=== PATIENT | male | born 1965 | race African-American/Black ===

== ENCOUNTER 2019-04-07 15:55 | Inpatient (IN) ==
[2019-04-07] MEDS ORDERED: NS 1,000 ML IV ONE ×2 (16:20→20:24)
[2019-04-07 16:43] LABS: BASO# 0.03 X1000 (0.0-0.2); BASO% 0.5 % (0.0-0.8); EOS# 0.04 X1000 (0.0-0.7); EOS% 0.6 % (0.0-10.0); HEMATOCRIT 43.1 % (42.0-52.0); HEMOGLOBIN 15.8 g/dL (14.0-18.0); IMM GRAN# 0.01 X1000 (0.0-0.04); IMM GRAN% 0.2 % (0.0-0.5); LYMPH# 1.67 X1000 (1.2-3.4); LYMPH% 25.8 % (20.5-51.1); MCH 29.3 PG (27-31); MCHC 36.7 g/dL (33-37); MCV 79.8 FL (81-99); MONO# 0.75 X1000 (0.11-0.59); MONO% 11.6 % (1.7-9.3); MPV 10.8 FL (7.4-10.4); NEUT# 3.98 X1000 (1.4-6.5); NEUT% 61.3 % (42.2-75.2); PLT 227 X1000 (130-400); RDW 13.2 % (11.5-14.5); WBC 6.48 X1000 (4.8-10.8)
--- NOTE | 2019-04-07 16:47 | PROVIDER DOCUMENTATION ---
HPI-General Adult - General Chief Complaint: Heat Related Stated Complaint: DIABETIC / THIRST / WEAK Time Seen by Provider: 04/07/19 16:19 Source: patient Allergies/Adverse Reactions: Patient Allergies Allergy/AdvReac Type Severity Reaction Status Date / Time No Known Allergies Allergy Verified 04/07/19 16:45 Home Medications: Home Medication List Medication Instructions Recorded Confirmed Last Taken Type Unobtainable [Home Meds 04/07/19 04/07/19 Unknown History Unobtainable] - History of Present Illness -Gen Adult Nature of Presenting Problems: 53 YOM PRESENTS WITH C/O GENERALIZED WEAKNESS, THIRST AND WORKING OUT IN THE HEAT ALL WEEK. HE DENIES N/V/D, CP, SOB. Location of Pain/Injury: reports: none Pain Radiation: reports: no radiation Quality of Pain: reports: none Severity: reports: moderate Onset/Duration: reports: 1 week ago Timing: reports: still present Context/Activities at Onset: reports: none Modifying Factors: improves with: nothing Associated Symptoms: reports: weakness Similar Symptoms Previously?: Yes Recently seen or treated by another doctor?: No - Diabetes Related Context Context: reports: high blood sugar Review of Systems - Adult - REVIEW OF SYSTEMS - ADULT Constitutional: reports: no symptoms reported. denies: see HPI, chills, fever, fatique, night sweats, weight gain, weight loss, other Eyes: reports: no symptoms reported. denies: see HPI, discharge, dry eyes, decreased vision, blurred vision, double vision, eye pain, redness, other Ears, Nose, Mouth & Throat: reports: no symptoms reported. denies: see HPI, ear discharge, ear pain, hearing loss, tinnitus, epistaxis, sinus problem, nose pain, loose teeth, mouth/dental pain, mouth swelling, hoarseness, throat pain, throat swelling, other Cardiovascular: reports: no symptoms reported. denies: see HPI, chest pain, edema, heart murmur, irregular heart rate, orthopnea, palpitations, poor circulation, PND, syncope, other Respiratory: reports: no symptoms reported. denies: see HPI, chronic cough, cough, dyspnea on exertion, excessive sputum production, hemoptysis, pleurisy, shortness of breath, wheezing, other Gastrointestinal: reports: no symptoms reported. denies: see HPI, abdominal pain, hematemesis, constipation, diarrhea, difficulty swallowing, frequent heartburn, nausea, poor appetite, rectal bleeding, vomiting, other Genitourinary: reports: no symptoms reported. denies: see HPI, dysuria, discharge, frequency, flank pain, frequent UTI's, hematuria, hesitency, incontinence, urinary retention, urgency, other Musculoskeletal: reports: see HPI, muscle weakness (GENRALIZED). denies: no symptoms reported, bone pain, back pain, frequent leg cramps, joint pain, joint swelling, muscle aches, neck pain, other Integumentary: reports: no symptoms reported. denies: see HPI, hives, hair loss, itching, mole changes, nail changes, rash, skin sores/ulcer, skin thickening, other Neurological: reports: no symptoms reported. denies: see HPI, ataxia, dizziness/vertigo, headache/migraines, loss of balance, numbness, paresthesia, seizure, slurred speech, syncope, tremors, other Psychiatric: reports: no symptoms reported. denies: see HPI, anxiety, anti-depressant use, alcohol/drug dependence, depression, emotional problems, insomnia, panic attacks, suicidal thoughts, other Endocrine: reports: see HPI, increased thirst. denies: no symptoms reported, change in skin pigment, excessive sweating, goiter, cold intolerance, heat intolerance, increased hunger, polyuria, other Hematologic/Lymphatic: reports: no symptoms reported. denies: see HPI, blood clots, easy bruising, low blood count, lymphedema, prolonged bleeding, swollen lymph nodes, transfusions, other Allergic/Immunologic: reports: no symptoms reported. denies: see HPI, allergic reactions, allergic rhinitis, asthma, eczema, food allergy, frequent infections, hay fever, hives, positive PPD, urticaria, other Past History - Adult - PAST MEDICAL HISTORY-ADULT Review of Records: reports: Nursing Assessment Review, Social history reviewed & non-contributory. Major Childhood Illnesses: reports: denies history Cardiovascular: reports: denies history Respiratory: reports: denies history Gastrointestinal: reports: denies history Obstetrical/Gynecological: reports: denies history Genitourinary: reports: denies history Musculoskeletal: reports: denies history Neurological: reports: denies history Endocrine/Immune: reports: Diabetes Other Conditions: reports: denies history - PRIOR SURGERIES/PROCEDURES Surgical/Procedure History: reports: appendectomy, hernia repair - IMMUNIZATION STATUS Childhood Immunizations: See Nurse Assessment Flu Vaccine: See Nurse Assessment - FAMILY HISTORY Family History: reviewed, not pertinent Physical Exam-General - PHYSICAL EXAM-ADULT Initial Vital Signs Reviewed: Yes - CONSTITUTIONAL General Appearance: appears well, alert, no apparent distress - EYES Eyes: PERRL/EOMI, pink conjunctivae - HEAD, EARS, NOSE, MOUTH & THROAT HENMT: normocephalic/atraumatic, moist mucous membranes, normal ENT inspection - NECK Neck: non-tender, full range of motion, supple - RESPIRATORY Respiratory: chest non-tender, lungs clear, normal breath sounds, no pleuratic chest pain, no respiratory distress, no accessory muscle use - CARDIOVASCULAR Cardiovascular: normal peripheral pulses, regular rate, rhythm, no edema, no gallop, no JVD, no murmur - GASTROINTESTINAL (ABDOMEN) Abdominal Exam: normal bowel sounds, non tender, soft - LYMPHATIC Lymphatic: no adenopathy - MUSCULOSKELETAL Back Exam: normal inspection, no CVA tenderness, no vertebral tenderness Extremity: normal range of motion, non-tender, normal gait - SKIN Integumentary: normal color, normal turgor, warm/dry - NEUROLOGIC Neurologic: grossly normal - PSYCHIATRIC Psych/Mental Status: normal mood/affect, oriented x 3 Progress - PLAN OF CARE/RESULTS Progress/Plan/Lab Results: Vital Signs - 8 hr 04/07/19 16:11 Temperature 97.8 F Pulse Rate 84 Respiratory Rate 18 Blood Pressure 138/75 O2 Sat by Pulse Oximetry 99 Laboratory Results - last 24 hr 04/07/19 16:33 WBC 6.48 RBC 5.40 Hgb 15.8 Hct 43.1 MCV 79.8 L MCH 29.3 MCHC 36.7 RDW Std Deviation 13.2 Plt Count 227 MPV 10.8 H Immature Gran % (Auto) 0.2 Neut % (Auto) 61.3 Lymph % (Auto) 25.8 [place] % (Auto) 11.6 H Eos % (Auto) 0.6 Baso % (Auto) 0.5 Immature Gran # (Auto) 0.01 Neut # (Auto) 3.98 Lymph # (Auto) 1.67 [place] # (Auto) 0.75 H Eos # (Auto) 0.04 Baso # (Auto) 0.03 Orders Category Date Time Status Finger Stick Blood Sugar (ED) DIRECTED Care 04/07/19 16:16 Active Saline Loc NOW Care 04/07/19 16:34 Active CBC WITH DIFF [HEME] Stat Lab 04/07/19 16:33 Completed CMP [COMPREHENSIVE METABOLIC PANEL] [CHEM] Stat Lab 04/07/19 16:33 Received Ketone [ACETONE SERUM] [CHEM] Stat Lab 04/07/19 16:33 Received MAGNESIUM [CHEM] Stat Lab 04/07/19 16:[address] W/POSS RFLX CULT [URINALYSIS] Stat Lab 04/07/19 16:[address] Uncol[address]OUS BLOOD GAS [address] [RESP] Routine Lab 04/07/19 16:29 Ordered 0.9% Sodium Chloride Inj [Ns] 1,000 ml Med 04/07/19 16:20 Active IV 999 mls/hr Result Diagrams: 04/07/19 16:33 04/07/19 16:33 - REASSESSMENT Reassessment #1 Time Reassessed: 17:43 (at bedside to assess pt and inform of admission. Pt in room eating BBQ sandwich and chips. Instructed pt that he needs to remain NPO at present. Pt verbalized understanding.) - CONSULTS/PCP/HOSPITALIST Notification #1 *Consult/PCP/Hospitalist*: Dr Lemus Time Discussed: 17:35 Consult Disposition: Will see in ED, Admit - CHANGE OF SHIFT REPORT (ED Provider) 1 Report Given and Care Transferred to:: CHRISTY PEREZ Time of Transfer: 17:00 Items Pending: Labs Departure - Departure Date of Disposition Decision: 04/07/19 Time of Disposition Decision: 17:44 DIAGNOSIS: DKA (diabetic ketoacidoses) Qualifiers: Diabetes mellitus type: other specified (including JAYNE) Diabetes mellitus complication detail: without coma Qualified Code(s): E13.10 - Other specified diabetes mellitus with ketoacidosis without coma Disposition: ADMITTED INPATIENT 09 Certified Medical Emergency: Emergent Condition: Fair Referrals and Follow-Ups: None,PCP [Primary Care Provider] - - Critical Care Note This patient required my direct & personal management of CC.: Yes Total Time (mins): 40 Critical Care Statement: This patient required my direct personal management to treat or rule out processes, the absence of which, could potentiallly result in sudden, clinically significant life or limb threatening deterioration. Attestation - Physician/ GARRET Attestation Patient care was provided by Advanced Practice Provider:: Yes Advanced Practice Provider:: Charles Perez Advanced Practice Provider documentation review:: The Mid-level provider documentation, treatment plan and medical decision making was reviewed by the physician who agrees with all treatment and medical decision making by the MLP. The physician spent face to face time with patient:: No Advanced Practice Provider documentation review:: Supervising physician onsite and consulted in the evaluation and care of this patient. The physician did not have a face to face encounter with the patient.
[2019-04-07 16:54] LABS: BE -15.5 mmoll (-2.0-2.0); BLOOD TYPE VENOUS; HCO3-(ACT) 10.9 mmoll (22-27); PCO2(98.6) 36 mmHg (40-60); PO2(98.6) 22 mmHg (30-55); SAMPLE BLOOD
[2019-04-07 16:57] LABS: pH(98.6) 7.15 (7.32-7.43)
[2019-04-07 17:11] LABS: AGAP 30; ALBUMIN 4.5 g/dL (3.5-5.0); ALKALINE PHOSPHATASE 134 U/L (32-122); BUN 9 mg/dL (8-22); CALCIUM 9.1 mg/dL (8.8-10.2); CHLORIDE 94 mmol/L (98-107); COSMO 272; CREATININE 1.1 mg/dL (0.7-1.2); ESTIMATED GFR > 60; GLUCOSE 284 mg/dL (70-104); GOT < 5 U/L (10-34); GPT < 5 U/L (10-44); MAGNESIUM 1.8 mg/dL (1.5-2.7); POTASSIUM 3.8 mmol/L (3.5-5.1); SODIUM 131 mmol/L (136-145); TCO2 7 mmol/L (25-35); TOTAL PROTEIN 7.9 g/dL (6.3-8.3)
[2019-04-07 17:28] LABS: BILIRUBIN URINE NEGATIVE (NEGATIVE); BLOOD URINE 1+ (NEGATIVE); CLARITY CLEAR (CLEAR); COLOR YELLOW; KETONE URINE 3+(Large) mg/dL (NEGATIVE); LEUKOCYTES URINE NEGATIVE (NEGATIVE); NITRITE URINE NEGATIVE (NEGATIVE); PROTEIN URINE 2+(100 mg/dL) mg/dL (NEGATIVE); UROBILINOGEN URINE NORMAL
[2019-04-07] MEDS ORDERED: HUMULIN R (PARKWAY) 100 UNITS in NS 100 ML IV SCH (17:30)
[2019-04-07 17:38] LABS: URINE BACTERIA NEGATIVE /HFP; URINE EPITHELIAL CELLS >10 /HPF (<10); URINE RBC <10 /HPF (<10); URINE SOURCE CLEAN CATCH; URINE WBC <10 /HPF (<10)
[2019-04-07] MEDS ORDERED: MAGNESIUM SULFATE 2 GM/S.W.I. 2 GM/50 ML IVPB IV PRN (17:49)
[2019-04-07] MEDS ORDERED: ZOFRAN IV PRN (17:49)
[2019-04-07] MEDS ORDERED: TYLENOL PO PRN (17:49)
[2019-04-07] MEDS ORDERED: SODIUM PHOSPHATE 30 MMOL in D5W 250 ML IV PRN (17:49)
[2019-04-07] MEDS ORDERED: D50W SYRINGE IV PRN (17:49)
[2019-04-07] MEDS ORDERED: HUMULIN R IV ONE (17:49)
[2019-04-07] MEDS ORDERED: POTASSIUM CHLORIDE 20 MEQ/SWI 20 MEQ/100 ML IVPB IV PRN (17:49)
[2019-04-07] MEDS ORDERED: HUMULIN R 100 UNIT in NS 100 ML IV SCH (18:00)
[2019-04-07 18:16] LABS: AMYLASE 89 U/L (20-200); CK PROFILE 66 U/L (24-204)
[2019-04-07 18:17] LABS: HEMOGLOBIN A1C 14.5 % (4.8-6.0)
[2019-04-07 18:48] LABS: MCH 29.4 PG (27-31); MCHC 36.6 g/dL (33-37); MCV 80.4 FL (81-99); RBC 5.1 XMIL (4.7-6.1); RDW 13.3 % (11.5-14.5); WBC 5.62 X1000 (4.8-10.8)
[2019-04-07] MEDS: NS 1,000 ML IV SCH (18:55)
[2019-04-07 19:01] LABS: ALBUMIN 4.3 g/dL (3.5-5.0); CALCIUM 8.6 mg/dL (8.8-10.2); CALCIUM 8.7 mg/dL (8.8-10.2); CREATININE 1.4 mg/dL (0.7-1.2); MAGNESIUM 1.7 mg/dL (1.5-2.7); PHOSPHORUS 2.5 mg/dL (2.7-4.5); POTASSIUM 4.1 mmol/L (3.5-5.1); TOTAL BILIRUBIN 0.4 mg/dL (0.20-1.00); TOTAL PROTEIN 7.2 g/dL (6.3-8.3)
[2019-04-07] MEDS: POTASSIUM CHLORIDE 20% LIQUID PO PRN ×2 (20:49→22:30)
[2019-04-07] MEDS: D5 1/2 NS 1,000 ML IV SCH (22:25)
[2019-04-07 22:42] LABS: CALCIUM 8.4 mg/dL (8.8-10.2); CREATININE 1.4 mg/dL (0.7-1.2); MAGNESIUM 2.2 mg/dL (1.5-2.7); PHOSPHORUS 1.4 mg/dL (2.7-4.5); POTASSIUM 4.1 mmol/L (3.5-5.1)
--- NOTE | 2019-04-08 00:13 | HISTORY AND PHYSICAL ---
CHIEF COMPLAINT: Abdominal pain. HISTORY OF PRESENT ILLNESS: The patient is a 53-year-old male who presented to the hospital with generalized weakness, increased thirst. Notes he has been working out in the sun all week. He has had some nausea. Notes he never really eats well. He has not been drinking very well. He has had increased abdominal pain, decreased oral intake today. ALLERGIES: No known drug allergies. MEDICATIONS: Do not have an accurate list currently. The patient is unsure. REVIEW OF SYSTEMS: As noted above, he has had decreased oral intake, abdominal pain, nausea, some vomiting. Denies any fevers, chills, dysuria, urinary frequency, urgency, hesitancy. Denies polyuria or polydipsia. Denies skin rashes, weight loss or weight gain. PAST MEDICAL HISTORY: Significant for diabetes for which he takes metformin. Notes his blood sugars are typically 80s to low 200s. SURGICAL HISTORY: He has had an appendectomy and a hernia repair. FAMILY HISTORY: Noncontributory. SOCIAL HISTORY: He is employed. Does not smoke or drink. PHYSICAL EXAMINATION: VITAL SIGNS: Reviewed. He is afebrile. Temperature 97.8 degrees, pulse 84, respiratory rate 18, BP 138/75. GENERAL: Patient is pleasant to talk with. He is in no current respiratory distress. HEENT: Normocephalic. NECK: Supple. CARDIOVASCULAR: Regular rate. No murmurs. CHEST: Clear, nonlabored. ABDOMEN: Soft diffusely but minimally tender. EXTREMITIES: Moves all extremities. NEUROLOGIC: No focal neurological changes. SKIN: Warm, dry. No rashes. ASSESSMENT: Acidosis. Unclear if he truly has lactic acidosis or diabetic ketoacidosis. His blood sugars are elevated. His bicarbonate is 7 and pH at 7.1 which certainly could be diabetic ketoacidosis. However, he also ate a barbecue sandwich while he was in the ER without any nausea or vomiting. Regardless, we are going to admit him to the hospital, treat him as DKA, place him on fluids, insulin, replace his electrolytes and we will monitor and we will follow. cc: Sekou Hogan MD
[2019-04-08] MEDS: D5 1/2 NS 1,000 ML IV SCH ×2 (01:27→05:33)
[2019-04-08] MEDS: NS 1,000 ML IV SCH ×2 (01:53→09:45)
[2019-04-08 02:22] LABS: ESTIMATED GFR > 60
[2019-04-08 02:24] LABS: AGAP 16; BUN 8 mg/dL (8-22); CALCIUM 8.2 mg/dL (8.8-10.2); CHLORIDE 105 mmol/L (98-107); COSMO 273; CREATININE 1.1 mg/dL (0.7-1.2); GLUCOSE 213 mg/dL (70-104); PHOSPHORUS 1.1 mg/dL (2.7-4.5); POTASSIUM 3.8 mmol/L (3.5-5.1); SODIUM 134 mmol/L (136-145); TCO2 13 mmol/L (25-35)
[2019-04-08] MEDS: POTASSIUM CHLORIDE 20% LIQUID PO PRN ×2 (02:36→05:33)
[2019-04-08 04:22] LABS: ESTIMATED GFR > 60
[2019-04-08 04:50] LABS: AGAP 13; BUN 7 mg/dL (8-22); CALCIUM 8.1 mg/dL (8.8-10.2); CHLORIDE 104 mmol/L (98-107); COSMO 271; CREATININE 1.1 mg/dL (0.7-1.2); GLUCOSE 256 mg/dL (70-104); SODIUM 132 mmol/L (136-145); TCO2 15 mmol/L (25-35)
[2019-04-08 06:28] LABS: AGAP 12; BUN 7 mg/dL (8-22); CALCIUM 8.3 mg/dL (8.8-10.2); CHLORIDE 105 mmol/L (98-107); COSMO 275; CREATININE 1.1 mg/dL (0.7-1.2); ESTIMATED GFR > 60; GLUCOSE 259 mg/dL (70-104); PHOSPHORUS 1.2 mg/dL (2.7-4.5); POTASSIUM 4.1 mmol/L (3.5-5.1); SODIUM 134 mmol/L (136-145); TCO2 16 mmol/L (25-35)
[2019-04-08 06:51] LABS: BE -7.3 mmoll (-3.0-3.0); BLOOD TYPE ARTERIAL; HCO3-(ACT) 19.2 mmoll (20.0-26.0); METHB 1.4 % (0.0-1.5); O2(CT) 17.2 mL/dL (15.0-23.0); O2HB 95.7 % (95.0-99.0); PCO2(98.6) 35 mmHg (35-45); PO2(98.6) 97 mmHg (60-100); SAMPLE BLOOD; SAO2 99.1 % (95.0-100.0); THB 12.7 g/dL (11.5-17.4); pH(98.6) 7.32 (7.35-7.45)
[2019-04-08 06:54] LABS: ALLEN TEST NO; MODALITY ROOM AIR
[2019-04-08] MEDS ORDERED: JANUVIA PO SCH (09:00)
[2019-04-08 14:56] VITALS: BP 134/78
--- NOTE | 2019-04-09 04:38 | DISCHARGE SUMMARY ---
ADMISSION DATE: 04/07/2019 DISCHARGE DATE: 04/08/2019 DISCHARGE DIAGNOSIS: 1. Metabolic acidosis secondary to nausea and vomiting. 2. Diabetes with very poor home control with an A1c of 14. 3. Volume depletion, resolved. CONSULTATIONS: None. PROCEDURES: None. BRIEF HOSPITAL COURSE: The patient was admitted to the hospital with metabolic acidosis. He was acetone positive. Certainly this could have been DKA. However, he turned around very quickly. His carbon dioxide was 7. He was not nauseated. He was able to eat which is highly unusual for DKA. His bicarbonate currently is 16. He is eating well. He was initially placed on insulin drip, IV fluids. Has improved. DISPOSITION: As patient is awake, alert, he is oriented, he is eating without any difficulty, discussed with him discharge plans. The patient is somewhat insistent that he be discharged. Did discuss with him that his blood sugar at home would be considered terrible control at best with an A1c of 14. We did not restart his Glucophage, but did add Januvia due to the metabolic acidosis. Discussed with him dietary changes and will follow. cc: Sekou Hogan MD
== END 2019-04-08 14:58 | disposition home or self-care (01) | DRG 641 ==
LOC: P.ED 15:55 → P.ICU 19:31 → SUATTDRO 19:31
PROVIDERS: ADMIT Family Medicine; ATTEND Family Medicine

== ENCOUNTER 2019-07-13 17:57 | Inpatient (IN) ==
[2019-07-13 18:27] LABS: BASO# 0.03 X1000 (0.0-0.2); BASO% 0.5 % (0.0-0.8); EOS# 0.09 X1000 (0.0-0.7); EOS% 1.5 % (0.0-10.0); HEMATOCRIT 41.3 % (42.0-52.0); HEMOGLOBIN 14.6 g/dL (14.0-18.0); IMM GRAN# 0.02 X1000 (0.0-0.04); IMM GRAN% 0.3 % (0.0-0.5); LYMPH# 1.68 X1000 (1.2-3.4); LYMPH% 28.2 % (20.5-51.1); MCH 28.5 PG (27-31); MCHC 35.4 g/dL (33-37); MCV 80.5 FL (81-99); MONO# 0.46 X1000 (0.11-0.59); MONO% 7.7 % (1.7-9.3); MPV 10.7 FL (7.4-10.4); NEUT# 3.67 X1000 (1.4-6.5); NEUT% 61.8 % (42.2-75.2); PLT 206 X1000 (130-400); RBC 5.13 XMIL (4.7-6.1); RDW 13.3 % (11.5-14.5); WBC 5.95 X1000 (4.8-10.8)
--- NOTE | 2019-07-13 19:06 | EKG Report ---
Test Performed on : 07/13/2019 6:18:24 PM Test Reason : weakness Blood Pressure : / mmHG Vent. Rate : 095 BPM Atrial Rate : 095 BPM P-R Int : 158 ms QRS Dur : 090 ms QT Int : 390 ms P-R-T Axes : 086 077 070 degrees QTc Int : 490 ms Normal sinus rhythm. Biatrial enlargement Pulmonary disease pattern Prolonged QT Abnormal ECG When compared with ECG of 21-AUG-2016 15:19, Vent. rate has increased BY 37 BPM QT has lengthened Unconfirmed Result
[2019-07-13 19:37] LABS: ALBUMIN 4.6 g/dL (3.5-5.0); CREATININE 1.3 mg/dL (0.7-1.2); POTASSIUM 4.1 mmol/L (3.5-5.1); TOTAL BILIRUBIN 0.5 mg/dL (0.20-1.00); TOTAL PROTEIN 7.9 g/dL (6.3-8.3)
--- NOTE | 2019-07-13 20:53 | Diag Imaging Result Doc PS360 ---
EXAM: FLAT/UPRIGHT ABD/1 VIEW CHEST INDICATION: weakness/no bm 4days TECHNIQUE: 3 views COMPARISON: None. FINDINGS: There is a large amount of stool in the colon suggesting at least moderate constipation. There is no obstructive bowel pattern. There is no evidence of large volume free abdominal gas. There is no evidence of organomegaly. The lungs are grossly clear. There is no discrete pleural fluid collection or pneumothorax. The cardiomediastinal silhouette and central vasculature are grossly unremarkable. IMPRESSION: Suggestion of constipation. Electronically signed by Tai Nelson 07/13/2019 8:51 PM
[2019-07-13] MEDS ORDERED: HUMALOG IV ONE (23:03)
[2019-07-13 23:44] LABS: BE -20.5 mmoll (-3.0-3.0); BLOOD TYPE ARTERIAL; HCO3-(ACT) 8.9 mmoll (20.0-26.0); PO2(98.6) 122 mmHg (60-100); SAMPLE BLOOD
[2019-07-13 23:47] LABS: pH(98.6) 7.15 (7.35-7.45)
[2019-07-13 23:48] LABS: ALLEN TEST YES; MODALITY ROOM AIR; PCO2(98.6) 18 mmHg (35-45)
[2019-07-13] MEDS ORDERED: HUMULIN R IV ONE (23:48)
[2019-07-13] MEDS ORDERED: NS 1,000 ML IV ONE (23:59)
--- NOTE | 2019-07-14 00:02 | PROVIDER DOCUMENTATION ---
This chart was entered by Daxa Pratt Scribe, acting as scribe for Herbie Christiansen MD. HPI-General Adult - General Chief Complaint: Weakness Stated Complaint: WEAKNESS Time Seen by Provider: 07/13/19 22:50 Source: patient Allergies/Adverse Reactions: Patient Allergies Allergy/AdvReac Type Severity Reaction Status Date / Time No Known Allergies Allergy Verified 04/07/19 16:45 Home Medications: Home Medication List Medication Instructions Recorded Confirmed Last Taken Type Sitagliptin Phosphate [Januvia] 100 mg PO DAILY #30 tab 04/08/19 Unknown Rx Glimepiride [Amaryl] 4 mg PO DAILY #30 tab 04/14/19 Unknown Rx Glimepiride [Amaryl] 4 mg PO NOW #30 tab 04/14/19 Unknown Rx Sodium Bicarbonate 650 mg PO BID #120 tab 04/14/19 Unknown Rx - History of Present Illness -Gen Adult Nature of Presenting Problems: pt is a 54 yr old male presenting with 4 day complaint of abdominal pain, cons tipation, elevated BGL and weakness. pt admits no BM x 4 days, denies nausea/vomiting. admits polyuria and dry mouth Location of Pain/Injury: reports: abdomen Pain Radiation: reports: no radiation Quality of Pain: reports: cramping, fullness Severity: reports: mild Onset/Duration: reports: 4 days ago Timing: reports: still present Context/Activities at Onset: reports: light activity Modifying Factors: improves with: nothing Associated Symptoms: reports: constipation, genitourinary problems, sinus congestion/drainage, weakness. denies: shortness of breath Similar Symptoms Previously?: No Recently seen or treated by another doctor?: No Review of Systems - Adult - REVIEW OF SYSTEMS - ADULT Constitutional: reports: fatique. denies: chills, fever Eyes: reports: no symptoms reported Ears, Nose, Mouth & Throat: reports: sinus problem, other (dry mouth) Cardiovascular: reports: no symptoms reported Respiratory: denies: cough, shortness of breath, wheezing Gastrointestinal: reports: abdominal pain, constipation. denies: nausea, poor appetite Genitourinary: reports: frequency, hesitency Musculoskeletal: reports: no symptoms reported Integumentary: reports: no symptoms reported Neurological: denies: dizziness/vertigo, headache/migraines Psychiatric: reports: no symptoms reported Endocrine: reports: increased thirst, polyuria Hematologic/Lymphatic: reports: no symptoms reported Allergic/Immunologic: reports: no symptoms reported All Other Systems: Reviewed and Negative Past History - Adult - PAST MEDICAL HISTORY-ADULT Review of Records: reports: Old Records Reviewed, Nursing Assessment Review, Medications Reviewed, Social history reviewed & non-contributory. Major Childhood Illnesses: reports: denies history Cardiovascular: reports: denies history Respiratory: reports: denies history Gastrointestinal: reports: denies history Obstetrical/Gynecological: reports: denies history Genitourinary: reports: denies history Musculoskeletal: reports: denies history Neurological: reports: denies history Endocrine/Immune: reports: Diabetes Other Conditions: reports: denies history - PRIOR SURGERIES/PROCEDURES Surgical/Procedure History: reports: appendectomy, hernia repair - IMMUNIZATION STATUS Childhood Immunizations: See Nurse Assessment Flu Vaccine: See Nurse Assessment - FAMILY HISTORY Family History: reviewed, not pertinent - SOCIAL HISTORY Smoking: denies Substance Use: alcohol Alcohol Use Frequency: occasionally Living Situation: family Physical Exam-General - PHYSICAL EXAM-ADULT Initial Vital Signs Reviewed: Yes - CONSTITUTIONAL General Appearance: alert, no apparent distress - EYES Eyes: PERRL/EOMI - HEAD, EARS, NOSE, MOUTH & THROAT HENMT: normocephalic/atraumatic, normal ENT inspection, other (dry oral) - NECK Neck: non-tender, full range of motion, supple, normal inspection - RESPIRATORY Respiratory: chest non-tender, lungs clear, normal breath sounds - CARDIOVASCULAR Cardiovascular: normal peripheral pulses, regular rate, rhythm, no edema - GASTROINTESTINAL (ABDOMEN) Abdominal Exam: normal bowel sounds, non tender, soft - LYMPHATIC Lymphatic: no adenopathy - MUSCULOSKELETAL Back Exam: normal inspection, no CVA tenderness, no vertebral tenderness Extremity: normal range of motion, non-tender, normal gait, normal inspection - SKIN Integumentary: normal color, normal turgor, warm/dry - NEUROLOGIC Neurologic: grossly normal, no motor/sensory deficits - PSYCHIATRIC Psych/Mental Status: normal mood/affect, normal thought content, normal thought process, oriented x 3 Progress - PLAN OF CARE/RESULTS Progress/Plan/Lab Results: Vital Signs - 8 hr 07/13/19 18:04 07/13/19 20:54 Temperature 97.2 F L 97.3 F L Pulse Rate 104 H 122 H Respiratory Rate 18 Blood Pressure 158/106 157/109 O2 Sat by Pulse Oximetry 98 97 Laboratory Results - last 24 hr 07/13/19 07/13/19 07/13/19 18:11 18:11 18:11 WBC 5.95 RBC 5.13 Hgb 14.6 Hct 41.3 L MCV 80.5 L MCH 28.5 MCHC 35.4 RDW Std Deviation 13.3 Plt Count 206 MPV 10.7 H Immature Gran % (Auto) 0.3 Neut % (Auto) 61.8 Lymph % (Auto) 28.2 [place] % (Auto) 7.7 Eos % (Auto) 1.5 Baso % (Auto) 0.5 Immature Gran # (Auto) 0.02 Neut # (Auto) 3.67 Lymph # (Auto) 1.68 [place] # (Auto) 0.46 Eos # (Auto) 0.09 Baso # (Auto) 0.03 Sodium 135 L Potassium 4.1 Chloride 98 Carbon Dioxide 9 L Anion Gap 28 BUN 10 Creatinine 1.3 H Estimated GFR/1.73 m2 58 BUN/Creatinine Ratio 8 Glucose 372 H POC Glucose Calculated Osmolality 284 Calcium 9.0 Total Bilirubin 0.50 AST 12 ALT 11 Alkaline Phosphatase 139 H Troponin T High Sens 8 Total Protein 7.9 Albumin 4.6 Globulin 3.0 Albumin/Globulin Ratio 1.0 07/13/19 21:03 WBC RBC Hgb Hct MCV MCH MCHC RDW Std Deviation Plt Count MPV Immature Gran % (Auto) Neut % (Auto) Lymph % (Auto) [place] % (Auto) Eos % (Auto) Baso % (Auto) Immature Gran # (Auto) Neut # (Auto) Lymph # (Auto) [place] # (Auto) Eos # (Auto) Baso # (Auto) Sodium Potassium Chloride Carbon Dioxide Anion Gap BUN Creatinine Estimated GFR/1.73 m2 BUN/Creatinine Ratio Glucose POC Glucose 276 H Calculated Osmolality Calcium Total Bilirubin AST ALT Alkaline Phosphatase Troponin T High Sens Total Protein Albumin Globulin Albumin/Globulin Ratio Orders Category Date Time Status FLAT/UPRIGHT ABD/1 VIEW CHEST [RAD] Stat Exams 07/13/19 18:09 Completed CBC WITH DIFF [HEME] Stat Lab 07/13/19 18:11 Completed COMPREHENSIVE METABOLIC PANEL [CHEM] Stat Lab 07/13/19 18:11 Completed TROPONIN T HIGH SENSITIVITY Stat Lab 07/13/19 18:11 Completed EKG [EKG] Stat Ther 07/13/19 18:06 Draft Result Diagrams: 07/13/19 18:11 07/13/19 18:11 - EKG 1 Time of EKG reading by physician:: 00:00 EKG Read and Signed by:: Herbie Christiansen Rate: 95 Rhythm: sinus QRS: normal ND Interval: normal ST Wave: normal - XRAY 1 XRAY Study: Abdomen (constipated) Departure - Departure Date of Disposition Decision: 07/13/19 Time of Disposition Decision: 23:01 DIAGNOSIS: T2DM (type 2 diabetes mellitus), DKA (diabetic ketoacidoses) Disposition: ADMITTED INPATIENT 09 Certified Medical Emergency: Emergent Condition: Stable Referrals and Follow-Ups: None,PCP [Primary Care Provider] - - Critical Care Note This patient required my direct & personal management of CC.: Yes Total Time (mins): 35 Critical Care Statement: This patient required my direct personal management to treat or rule out processes, the absence of which, could potentiallly result in sudden, clinically significant life or limb threatening deterioration. Attestation - Physician/ GARRET Attestation Patient care was provided by Advanced Practice Provider:: No The physician spent face to face time with patient:: Yes Advanced Practice Provider documentation review:: Supervising physician onsite and consulted in the evaluation and care of this patient. The physician did have a face to face encounter with the patient. This chart was documented by the indicated scribe, (Daxa Pratt Scribe) and accurately reflects the services I performed and decisions made by me, Herbie Christiansen MD, as attested by the provider's signature.
[2019-07-14] MEDS ORDERED: NS 1,000 ML IV ONE ×2 (00:03→02:16)
[2019-07-14 00:13] LABS: MAGNESIUM 1.9 mg/dL (1.5-2.7); PHOSPHORUS 2.7 mg/dL (2.7-4.5)
[2019-07-14] MEDS ORDERED: NS 1,000 ML ONE (02:16)
[2019-07-14 04:07] LABS: URINE SOURCE CLEAN CATCH
[2019-07-14 04:29] LABS: UR AMPHETAMINES QUAL NONE DETECTED (NONE DETECT); UR BARBITUATES QUAL NONE DETECTED (NONE DETECT); UR BENZODIAZEPIN QUAL NONE DETECTED (NONE DETECT); UR CANNABINOIDS QUAL NONE DETECTED (NONE DETECT); UR COCAINE QUAL NONE DETECTED (NONE DETECT); UR METHADONE QUAL NONE DETECTED (NONE DETECT); UR METHAMPHETAMINE QUAL NONE DETECTED (NONE DETECT); UR OPIATES QUAL NONE DETECTED (NONE DETECT); UR OXYCODONE QUAL NONE DETECTED (NONE DETECT); UR PCP QUAL NONE DETECTED (NONE DETECT); UR PROPOXYPHENE QUAL NONE DETECTED (NONE DETECT); UR TCA QUAL NONE DETECTED (NONE DETECT)
[2019-07-14 04:30] LABS: BILIRUBIN URINE NEGATIVE (NEGATIVE); BLOOD URINE NEGATIVE (NEGATIVE); COLOR STRAW; GLUCOSE URINE >1000 mg/dL (NEGATIVE); KETONE URINE >150 mg/dL (NEGATIVE); LEUKOCYTES URINE NEGATIVE (NEGATIVE); NITRITE URINE NEGATIVE (NEGATIVE); PH URINE 5.5; PROTEIN URINE 30 mg/dL (NEGATIVE); TURBIDITY URINE CLEAR (CLEAR); UROBILINOGEN URINE NORMAL (NORMAL)
[2019-07-14 04:31] LABS: UR EPITHELIAL CELLS <10 /HPF (<10); URINE BACTERIA NEGATIVE /HPF; URINE RBC <10 /HPF (<10); URINE WBC <10 /HPF (<10)
[2019-07-14] MEDS ORDERED: ZOFRAN IV PRN (04:34)
[2019-07-14] MEDS ORDERED: POTASSIUM CHLORIDE 20 MEQ/SWI 20 MEQ/100 ML IVPB IV PRN (04:34)
[2019-07-14] MEDS ORDERED: D5 NS 1,000 ML IV PRN (04:34)
[2019-07-14] MEDS ORDERED: D50W SYRINGE IV PRN ×2 (04:34→08:39)
[2019-07-14] MEDS ORDERED: POTASSIUM CHLORIDE 40 MEQ/SWI 40 MEQ/100 ML IVPB IV PRN (04:34)
[2019-07-14] MEDS ORDERED: SODIUM PHOSPHATE 30 MMOL in D5W 250 ML IV PRN (04:34)
[2019-07-14] MEDS ORDERED: MAGNESIUM SULFATE 2 GM/S.W.I. 2 GM/50 ML IVPB IV PRN (04:34)
[2019-07-14] MEDS ORDERED: TYLENOL PO PRN (04:34)
[2019-07-14 04:49] LABS: ESTIMATED GFR > 60
[2019-07-14 04:53] LABS: AGAP 28; BUN 9 mg/dL (8-22); CALCIUM 8.3 mg/dL (8.8-10.2); CHLORIDE 101 mmol/L (98-107); COSMO 283; CREATININE 1.3 mg/dL (0.7-1.2); GLUCOSE 228 mg/dL (70-104); POTASSIUM 4.4 mmol/L (3.5-5.1); SODIUM 139 mmol/L (136-145); TCO2 10 mmol/L (25-35)
[2019-07-14 04:57] LABS: ALLEN TEST YES; BE -19.4 mmoll (-3.0-3.0); BLOOD TYPE ARTERIAL; HCO3-(ACT) 9.8 mmoll (20.0-26.0); METHB 1.5 % (0.0-1.5); O2(CT) 20.1 mL/dL (15.0-23.0); O2HB 96.3 % (95.0-99.0); PO2(98.6) 134 mmHg (60-100); SAMPLE BLOOD; SAO2 99.4 % (95.0-100.0); THB 14.7 g/dL (11.5-17.4)
[2019-07-14 04:58] LABS: MODALITY ROOM AIR; pH(98.6) 7.18 (7.35-7.45)
[2019-07-14 04:59] LABS: PCO2(98.6) 18 mmHg (35-45)
[2019-07-14] MEDS: HUMULIN R 100 UNIT in NS 100 ML IV SCH (05:00)
[2019-07-14] MEDS: NS 1,000 ML IV ONE ×2 (05:00→06:39)
[2019-07-14 05:08] LABS: PHOSPHORUS 1.9 mg/dL (2.7-4.5)
--- NOTE | 2019-07-14 05:13 | Diag Imaging Result Doc PS360 ---
EXAM: CHEST-2 VIEWS HISTORY: dka TECHNIQUE: Two views COMPARISON: 07/13/2019 FINDINGS: The lungs are hyperexpanded. The heart is not enlarged. The vessels are small. There are no infiltrates. No pleural effusions. IMPRESSION: Emphysema Electronically signed by Adrian Matias 07/14/2019 5:11 AM
[2019-07-14 05:20] LABS: HEMOGLOBIN A1C 15.3 % (4.8-6.0)
[2019-07-14] MEDS: POTASSIUM CHLORIDE 10% LIQUID PO PRN ×4 (05:28→17:26)
--- NOTE | 2019-07-14 07:10 | HISTORY AND PHYSICAL ---
ADDENDUM: The patient was transferred from [facility] on account of him having complaints of persistent nausea, but with also polyuria, polydipsia and weight loss. The patient does not have any family physician, and has been taking metformin for quite a while but stopped a month or so ago. It was found that lab work showed that he had an anion gap of 28, bicarb of 9, and sugar of 372. A1c was also 15.3. He has small acetone. His pH was 7.18, pCO2 18, and PO2 134. Imaging studies showed he has constipation and evidence of emphysema. He was started on DKA protocol on arrival to the ICU in [place]. [place] was given fluids and IV push of insulin. Currently, his anion gap is unchanged with bicarb of 10. He says he feels better overall, and would like to eat. He denies any antecedent fever or chills. Cardiorespiratory complaints preceding these aforementioned symptoms. We will continue with DKA protocol, fluids and monitor electrolytes. This patient will definitely need to be on insulin as his habitus which is a thin lean habitus is more consistent with a type 1 or at least insulin deficient and diabetes. We need to be taught how to use it. He will be given the option of b.i.d. dosing with 70/30 or 4 times a day shots with Lantus and 3 shots a day. I am not sure if this patient has any insurance, but that is something that needs to be addressed by the attending and [employer]. cc: Albino Villafana MD
--- NOTE | 2019-07-14 07:14 | HISTORY AND PHYSICAL ---
CHIEF COMPLAINT: Abdominal pain, constipation and weakness. HISTORY OF PRESENT ILLNESS: This is a 54-year-old -L[place] male that had a 4-day complaint of abdominal pain, constipation and weakness. He has had nausea, vomiting. He had polyuria, polydipsia and polyphagia. He does have a history of diabetes mellitus type 2. He states that he does not have a primary care doctor and he has been out of his medications for a couple of weeks. He was found to be in DKA at [facility] and he was sent here for further evaluation and treatment. PAST MEDICAL HISTORY: See HPI. PREVIOUS SURGICAL HISTORY: 1. Appendectomy. 2. Esophageal dilation. FAMILY HISTORY: Mother has diabetes mellitus type 2. Father has diabetes mellitus type 1. SOCIAL HISTORY: No tobacco. Occasional alcohol. No illicit drugs. ALLERGIES: No known drug allergies. HOME MEDICATIONS: The patient is supposed to be on metformin; however, he recently ran out in the last couple of weeks. REVIEW OF SYSTEMS: Fourteen point review of systems conducted with the patient. Pertinent positives listed above in the HPI. All other systems reviewed and found to be negative. PHYSICAL EXAMINATION: VITAL SIGNS: Temperature 97.9 degrees, pulse 78, respirations 18, blood pressure 144/84, oxygen saturation 100% on room air. GENERAL: Pleasant 54-year-old -L[place]anese male lying in the ICU bed. Answers all questions appropriately. He is alert and oriented x3. HEENT: Head is atraumatic, normocephalic. Pupils equal, round and reactive to light. Extraocular eye movements intact. Sclerae anicteric. Conjunctivae pink. Oral mucosa is dry. NECK: Supple. No JVD. No thyromegaly. Trachea is midline. No cervical lymphadenopathy. CARDIAC: S1, S2 appreciated. No murmurs, gallops, rubs. LUNGS: Clear to auscultation bilaterally. No rhonchi, wheeze or rales. Symmetric rise and fall of respirations. ABDOMEN: Soft, nondistended, nontender. Bowel sounds present in all 4 quadrants. Normoactive. No pulsatile mass or organomegaly. EXTREMITIES: No cyanosis, clubbing or edema. 2+ pedal pulses bilaterally. GENITOURINARY: No bladder distention. Patient voids. Otherwise deferred. NEUROLOGICAL: Alert and oriented x3. No focal motor deficits. Otherwise nonfocal examination. DIAGNOSTIC DATA: Chest x-ray shows emphysema. LABORATORY DATA: CBC within normal limits. ABG, pH 7.15, CO2 18, PO2 122, bicarb 8.9. This was on room air. Sodium 135, potassium 4.1, chloride 98, carbon dioxide 9, BUN 10, creatinine 1.3, glucose 372. Urine is pending. Acetone level was positive. ASSESSMENT AND PLAN: 1. DKA. 2. Volume depletion. 3. Medical noncompliance. 4. Acute kidney injury. PLAN: Admit patient to ICU, start DKA protocol. We will replace fluids and electrolytes per protocol. Trend laboratory data. Recheck an ABG. Patient will need diabetic teaching. He likely will need to go home on insulin as opposed to metformin. We will continue to monitor. Further recommendations per patient's clinical course. Dictated by CHRISTY Wynn for Albino Villafana MD cc: CHRISTY Wynn MD
[2019-07-14] MEDS ORDERED: HUMULIN R IV ONE (08:39)
[2019-07-14] MEDS ORDERED: HUMULIN R 100 UNIT in NS 100 ML IV SCH (08:45)
[2019-07-14 09:37] LABS: MAGNESIUM 1.9 mg/dL (1.5-2.7); PHOSPHORUS 1.4 mg/dL (2.7-4.5)
[2019-07-14 09:40] LABS: ESTIMATED GFR > 60
[2019-07-14 09:42] LABS: AGAP 20; BUN 9 mg/dL (8-22); CALCIUM 8.6 mg/dL (8.8-10.2); CHLORIDE 105 mmol/L (98-107); COSMO 289; CREATININE 1.3 mg/dL (0.7-1.2); GLUCOSE 333 mg/dL (70-104); POTASSIUM 4.4 mmol/L (3.5-5.1); SODIUM 139 mmol/L (136-145); TCO2 14 mmol/L (25-35)
[2019-07-14] MEDS: NS 1,000 ML IV SCH ×3 (10:37→18:02)
[2019-07-14 14:00] LABS: ESTIMATED GFR > 60
--- NOTE | 2019-07-14 14:08 | PROGRESS NOTE ---
DATE: 07/14/2019 SUBJECTIVE: Today Mr. Gu refers to be doing well. Mr. Gu is a 54-year-old gentleman who is known to have diabetes mellitus, used to be on only metformin sporadically and according to him, he ran out of his medication about a week. He does not have any regular follow up. He said for the past couple months his glucose has been way above 250 anytime he checks it at home. OBJECTIVE: Vital signs: Blood pressure is 118/79, pulse of 79, respirations 17, temperature 97.9 degrees. General: Mr. Gu is a 54-year-old gentleman. He is in bed, no distress. HEENT: Mucosa is pink and moist. Anicteric. Acyanotic. Neck: Supple. Chest: Clear to auscultation. No crepitations. No rhonchi. Cardiovascular: Regular rate and rhythm. No murmurs. No rubs. No gallops. GI: Abdomen is soft, nontender. Bowel sounds present. Extremities: No pedal edema. Distal pulses were present. The patient has normal sensation in the lower extremities. LABORATORY DATA: Has been reviewed. The patient was slightly hemoconcentrated on admission. Chemistry did reveal creatinine was 1.3. Current bicarb is 10 with a gap of 28. ASSESSMENT: 1. Diabetic ketoacidosis. We are going to continue with the protocol. 2. Clinical volume depletion. The patient is on fluids. 3. Acute kidney injury. We will continue with volume resuscitation. 4. Medical noncompliance. Patient has been advised extensively on diabetic management and he will also be referred to diabetic education on discharge. 5. Dyslipidemia. He will be started on atorvastatin. cc: Denzel Lewis MD [facility]
[2019-07-14 14:09] LABS: AGAP 19; BUN 11 mg/dL (8-22); CALCIUM 8.3 mg/dL (8.8-10.2); CHLORIDE 103 mmol/L (98-107); COSMO 282; CREATININE 1.2 mg/dL (0.7-1.2); GLUCOSE 298 mg/dL (70-104); SODIUM 136 mmol/L (136-145); TCO2 14 mmol/L (25-35)
[2019-07-14 14:44] LABS: MAGNESIUM 1.9 mg/dL (1.5-2.7)
[2019-07-14 17:14] LABS: ESTIMATED GFR > 60
[2019-07-14 17:15] LABS: AGAP 18; BUN 11 mg/dL (8-22); CALCIUM 8.7 mg/dL (8.8-10.2); CHLORIDE 103 mmol/L (98-107); COSMO 274; CREATININE 1.2 mg/dL (0.7-1.2); GLUCOSE 214 mg/dL (70-104); POTASSIUM 4.1 mmol/L (3.5-5.1); SODIUM 134 mmol/L (136-145); TCO2 13 mmol/L (25-35)
[2019-07-14 17:24] LABS: MAGNESIUM 2.1 mg/dL (1.5-2.7)
[2019-07-14] MEDS: LIPITOR PO SCH (21:12)
[2019-07-14 21:49] LABS: AGAP 11; BUN 10 mg/dL (8-22); CALCIUM 8.6 mg/dL (8.8-10.2); CHLORIDE 107 mmol/L (98-107); COSMO 282; ESTIMATED GFR > 60; GLUCOSE 191 mg/dL (70-104); POTASSIUM 3.5 mmol/L (3.5-5.1); SODIUM 139 mmol/L (136-145); TCO2 21 mmol/L (25-35)
[2019-07-14] MEDS: POTASSIUM CHLORIDE 20% LIQUID PO PRN (22:30)
[2019-07-14 22:41] LABS: PHOSPHORUS 0.8 mg/dL (2.7-4.5)
[2019-07-15] MEDS: NS 1,000 ML IV SCH ×2 (01:21→06:29)
[2019-07-15 01:53] LABS: ESTIMATED GFR > 60
[2019-07-15 01:59] LABS: AGAP 17; BUN 9 mg/dL (8-22); CALCIUM 8.3 mg/dL (8.8-10.2); CHLORIDE 108 mmol/L (98-107); COSMO 280; GLUCOSE 173 mg/dL (70-104); MAGNESIUM 1.9 mg/dL (1.5-2.7); POTASSIUM 3.8 mmol/L (3.5-5.1); SODIUM 139 mmol/L (136-145); TCO2 14 mmol/L (25-35)
[2019-07-15] MEDS: POTASSIUM CHLORIDE 10% LIQUID PO PRN ×2 (02:13→05:42)
[2019-07-15 05:02] LABS: AGAP 13; BUN 7 mg/dL (8-22); CALCIUM 8.1 mg/dL (8.8-10.2); CHLORIDE 105 mmol/L (98-107); COSMO 279; CREATININE 0.9 mg/dL (0.7-1.2); ESTIMATED GFR > 60; GLUCOSE 191 mg/dL (70-104); MAGNESIUM 1.7 mg/dL (1.5-2.7); PHOSPHORUS 2.3 mg/dL (2.7-4.5); POTASSIUM 3.6 mmol/L (3.5-5.1); SODIUM 138 mmol/L (136-145); TCO2 20 mmol/L (25-35)
[2019-07-15] MEDS: HUMULIN R 100 UNIT in NS 100 ML IV SCH (06:29)
[2019-07-15 08:44] LABS: AGAP 11; BUN 6 mg/dL (8-22); CALCIUM 8.4 mg/dL (8.8-10.2); CHLORIDE 104 mmol/L (98-107); COSMO 278; CREATININE 0.9 mg/dL (0.7-1.2); ESTIMATED GFR > 60; GLUCOSE 145 mg/dL (70-104); MAGNESIUM 2.5 mg/dL (1.5-2.7); PHOSPHORUS 1.5 mg/dL (2.7-4.5); POTASSIUM 3.4 mmol/L (3.5-5.1); SODIUM 139 mmol/L (136-145); TCO2 24 mmol/L (25-35)
[2019-07-15] MEDS: POTASSIUM CHLORIDE 20% LIQUID PO PRN (09:05)
[2019-07-15] MEDS: LANTUS INSULIN SUBQ SCH (09:06)
[2019-07-15] MEDS: 1/2 NS + KCL 20 MEQ 1,000 ML IV SCH (11:30)
[2019-07-15] MEDS: HUMALOG SUBQ SCH ×4 (11:31→20:36)
--- NOTE | 2019-07-15 13:27 | PROGRESS NOTE ---
DATE: 07/15/2019 SUBJECTIVE: This morning Mr. Gu refers to be doing okay. Denies any new complaints. OBJECTIVELY: Vital signs: Blood pressure is 122/79, pulse of 75, respiration is 16, temperature 97.6 degrees. Patient is saturating 97%. General: Mr. Gu is a 54-year-old gentleman. He is in bed no distress. HEENT: Mucosa is pink and moist. Anicteric. Acyanotic. Neck: Supple. There is no jugular venous distention. RESPIRATORY SYSTEM: Chest clear to auscultation. No crepitations. No rhonchi.Cardiovascular: Regular rate and rhythm. No murmurs, no rubs, no gallops. GI: Abdomen soft, nontender. Bowel sounds present. There is no hepatosplenomegaly. Extremities: No pedal edema. Distal pulses present. LOCAL FLATBED DRIVER: Patient is awake, alert, oriented. There is no focal deficit. I'S AND O'S: Urine output was 4930 is still kind of positive balance for 3959 during the hospital course. LABORATORY DATA: Chemistry is reviewed. Bicarb is up to 24, gap is 11, glucose was 145 early this morning. ASSESSMENT: 1. Severe uncontrolled diabetes mellitus type 2 with a presenting A1c of 15.3, complicated with diabetic ketoacidosis. Diabetic ketoacidosis has resolved. The diabetic ketoacidosis protocol has been discontinued. Patient has been transitioned to long-acting glargine and pattern. He will be transferred from the ICU to the medical floor. 2. Acute kidney injury secondary to clinical volume depletion, improved. Creatinine has normalized. 3. Dyslipidemia patient is on statin. 4. Medical noncompliance. Patient has been advised. 5. Mild electrolyte abnormality including hypophosphatemia and hypokalemia, will be replaced. PLAN: In general, I think Mr. Gu is doing well. DKA has resolved. The patient has been started on glargine and t.i.d. lispro with meals and will continue with sliding scale. He is going to be transferred from the ICU to regular floor and continue monitoring his glucose for an adequate insulin regimen and hopefully get him discharged tomorrow. cc: Denzel Lewis MD
[2019-07-15] MEDS: LIPITOR PO SCH (20:36)
[2019-07-16] MEDS: 1/2 NS + KCL 20 MEQ 1,000 ML IV SCH ×2 (02:56→13:56)
[2019-07-16] MEDS: HUMALOG SUBQ SCH ×4 (06:25→13:56)
[2019-07-16 08:36] LABS: AGAP 13; ALBUMIN 3.3 g/dL (3.5-5.0); BUN 5 mg/dL (8-22); CALCIUM 8.2 mg/dL (8.8-10.2); CHLORIDE 99 mmol/L (98-107); COSMO 273; CREATININE 0.7 mg/dL (0.7-1.2); ESTIMATED GFR > 60; GLUCOSE 241 mg/dL (70-104); PHOSPHORUS 1.9 mg/dL (2.7-4.5); POTASSIUM 3.2 mmol/L (3.5-5.1); SODIUM 134 mmol/L (136-145); TCO2 22 mmol/L (25-35)
[2019-07-16 08:56] VITALS: BP 105/70
[2019-07-16] MEDS: LANTUS INSULIN SUBQ SCH (09:42)
--- NOTE | 2019-07-17 09:39 | DISCHARGE SUMMARY ---
ADMISSION DATE: 07/13/2019 DISCHARGE DATE: 07/16/2019 DISPOSITION: Home. FOLLOWUP: With the patient's PCP and Diabetic Education in [place]. CONSULTATIONS DURING THIS ADMISSION: None. IMAGING STUDIES OF SIGNIFICANCE: KUB suggested constipation. A chest x-ray showed emphysema. ADMISSION DIAGNOSES: 1. Diabetic ketoacidosis. 2. Clinical volume depletion. 3. Medical noncompliance. DISCHARGE DIAGNOSES: 1. Severe uncontrolled diabetes mellitus on presentation with an A1c of 15.3, complicated with diabetic ketoacidosis. The patient was admitted to the intensive care unit. Protocol was initiated until diabetic ketoacidosis resolved. 2. Acute kidney injury secondary to clinical volume depletion, improved. 3. Dyslipidemia. Patient is on atorvastatin. 4. Electrolyte abnormality including hypophosphatemia and hypokalemia, replaced. 5. Medical noncompliance. Patient has been advised. 6. Constipation, improved. DISCHARGE MEDICATIONS: 1. Metformin 500 b.i.d. 2. Insulin 70/30 with 25 units in the morning and 50 units in the evening. 3. Atorvastatin 40 mg p.o. at bedtime. PRESENTING COMPLAINT: Abdominal pain, weakness. HISTORY OF PRESENTING COMPLAINT: Mr. Gu is a 54-year-old, -[place] gentleman who is known to have diabetes but not very compliant with medications. Has been having polydipsia and polyphagia for the past couple of days. Went to the emergency department at [place]. Was found to be in DKA and was transferred over here for a higher level of care since [place] did not have ICU services. HOSPITAL COURSE: Mr. Gu was admitted to the ICU at [facility]. DKA protocol was initiated until the DKA was resolved. Then the patient was transitioned to a regimen of insulin and was transferred to the medical floor. He was observed another 24 hours on the medical floor on insulin. Glucose was fairly stable. This morning, he refers to be doing a lot better. During the hospital course, Mr. Gu was also found to be remarkably dehydrated with an initial creatinine of 1.3 which, with adequate fluid resuscitation, this normalized at 0.7 today. Clinically, he looks better. We think he can be discharged. He has been advised on medication compliance. He has been advised on following up with diabetic education at [place]. He has also been given a list of physicians that he will be able to call in the community and follow up with. All the discharge instructions discussed with him and he voiced understanding. Time spent for discharge is 38 minutes. cc: MD CHALO Hoyos
== END 2019-07-16 14:25 | disposition home or self-care (01) | DRG 638 ==
LOC: P.ED 17:57 → SUATTDRO 07-14 03:01 → ICU 07-14 03:01 → 3N 07-15 18:20
PROVIDERS: ATTEND Internal Medicine